=== PATIENT | male | born 1990 | race Caucasian/White ===

== ENCOUNTER 2024-04-13 18:49 | Emergency (ER) | payer MEDICAID ==
[~2024-04-13] VITALS: Ht 177.8 cm; Wt 85.5 kg
[2024-04-13 23:53] VITALS: BP 97/63; PULSE 61; RESP 18; TEMP 97.9; O2SAT 97
== END 2024-04-13 23:56 | disposition home or self-care (01) ==
LOC: ER 18:49
DX: S81.811A Laceration without foreign body, right lower leg, initial encounter (principal); F12.90 Cannabis use, unspecified, uncomplicated; F17.200 Nicotine dependence, unspecified, uncomplicated; Z59.00 Homelessness unspecified; W19.XXXA Unspecified fall, initial encounter; Y93.89 Activity, other specified; Y92.89 Other specified places as the place of occurrence of the external cause; Y99.8 Other external cause status
CPT/HCPCS: 12004; 99282; A6258; A6446; A6449